=== PATIENT | male | born 1965 ===

== ENCOUNTER → 2016-11-11 | Outpatient (CLI) | payer BC ==
[~2016-11-11] MED LIST: CYCL10TA6 PO; HYDR-5688 PO; OXYC-57 PO
== END | disposition home or self-care (01) ==
LOC: C.RDSM 11:00
PROVIDERS: ATTEND Physical Medicine & Rehabilitation Sports Medicine
DX: M25.512 Pain in left shoulder (principal)

== ENCOUNTER → 2017-02-18 | Day surgery (SDC) | payer BC ==
[2017-02-04 09:36] VITALS: Ht 180.3 cm; Wt 88.6 kg
[~2017-02-18] VITALS: Ht 180.3 cm; Wt 88.6 kg
[~2017-02-18] MED LIST changes: +ATROPINE SULFATE 0.1 MG/ML 5ML SYR IV PRN; +BUPIVACAINE/EPINEPHRINE 0.5% MPF 1:200,000 30 ML VIAL ONE; +CEFAZOLIN 2000 MG/60 ML D5W IV SCH; +DEXAMETHASONE SOD INJ 4 MG/ML VIAL ONE; +EpHEDrine SULFATE INJ 50 MG/ML AMP IV PRN; +EpINEphrine INJ 1MG/ML AMP 1 MG/ML AMP ONE; +FENTANYL CITRATE INJ 50 MCG/1 ML 2 ML VIAL IV PRN; +FENTANYL CITRATE INJ 50 MCG/1 ML 2 ML VIAL ONE; +HYDROmorphone INJ 1 MG/ML SYR IV PRN; +LACTATED RINGER'S 1000ML 1,000 ML IV SCH; +LEVOFLOXACIN 500 MG TAB PO SCH; +LIDOCAINE HCL 2% 2 ML VIAL (20MG/ML) ONE; +MIDAZOLAM HCL 1 MG/ML 2ML VIAL ONE; +ONDANSETRON INJ 2 MG/ML 2 ML VIAL IV PRN; +ONDANSETRON INJ 2 MG/ML 2 ML VIAL ONE; +OXYCODONE/ACETAMINOPHEN 5-325 TAB PO PRN; +PROPOFOL IV EMULSION 10 MG/ML 20 ML VIAL IV ONE; +ROPIVACAINE 0.5% 5 MG/ML 30 ML VIAL ONE; +SODIUM CHLORIDE 0.9% 1000ML 1,000 ML IV SCH
--- NOTE | 2017-02-18 06:36 | History & Physical Bridge Note ---
H&P Re-Evaluation Bridge Note: I have examined the patient, reviewed the History & Physical and in the interval since the performance of the History & Physical I have noted the following changes of clinical significance: No changes noted
--- NOTE | 2017-02-18 06:39 | Discharge Instructions ---
Discharge Instructions Date of Service February 18, 2017. Visit Reason for Visit: Left Shoulder Rotator Cuff Tear With Impingement Discharge Discharge Diagnosis / Problem: same Discharge Goals Goal(s): Decrease discomfort, Improve function Medications Stopped Medications Name(s): na Restart Stopped Medication(s): use scripts as directed Activity Recommendations Activity Limitations: as noted below Lifting Limitations: until after follow-up appointment Exercise/Sports Limitations: until after follow-up appointment May Resume Sexual Activity: when tolerated Shower/Bathe: keep incision dry Driving or Machine Use: Anesthesia . Post Anesthesia Instructions: If you have had General Anesthesia or IV Sedation: * Do not drive today. * Resume driving when surgeon permits. * Do not make important decisions or sign legal documents today. * Call surgeon for: 1. Temperature elevations greater than 101 degrees F. 2. Uncontrollable pain. 3. Excessive bleeding. 4. Persistent nausea and vomiting. 5. Medication intolerance (nausea, vomiting or rash). * For nausea and vomiting use only clear liquids such as: tea, soda, bouillon until nausea subsides, then gradually increase diet as tolerated. * If you have any concerns or questions, call your surgeon's office. If physician is unavailable and it is an emergency, call 911 or go to the nearest emergency room. . Instructions / Follow-Up Instructions / Follow-Up The following are instructions to follow after "Shoulder Surgery" including, Acromioplasty, Rotator Cuff Repair and Instability Surgery ACTIVITY RECOMMENDATIONS: * Minimize activity after surgery. * No excessive walking, jogging, sports or laboring. * Return to activity is individualized depending on the patient and type of surgery. * Driving is not permitted until at least your first post operative visit. Please ask your doctor when it is safe to resume driving. * Expect increased discomfort with increased activity. Continue to ice the shoulder as needed. SCHOOL/WORK RECOMMENDATIONS: * You may return to sedentary work or school when you are feeling more comfortable. This is usually 3-7 days after surgery. MEDICATIONS: * You will have a prescription for pain medication and an anti-inflammatory medication after surgery. * Use the pain medication for severe pain and the anti-inflammatory for less severe pain. Once the pain medication has run out, try to use the anti-inflammatory medication. If this is not effective, contact the office for assistance. * The pain medication may cause nausea, constipation and drowsiness. You should see how they affect you before driving or similar activity. * The anti-inflammatory medication may cause stomach upset and bleeding. If this occurs let your doctor know immediately . * Take a stool softener like Colace or a laxative like Senokot to prevent constipation. DIET: * Resume previous diet. SPECIAL CARE: ICE: You have the option of an ice cooler, gel packs or ice bags. * If you have an ice cooler, refer to the instructions for that device. The ice cooler may be used continuously. * If you do not have an ice cooler, you will need to use ice bags or gel packs. Do not apply ice directly to the skin. Use a thin dressing or eneida shirt between the skin and ice bag. Apply ice for 20-30 minutes and repeat every 2-4 hours. This is especially important for the first 7-10 days after surgery. Once the pain improves, use ice as needed. ELEVATION: * You may be more comfortable sleeping in an upright position. Use the sling to elevate your arm. DRESSING: * Your dressing will be changed at your first therapy appointment approximately 4-5 days after surgery. Band-aids, tape strips or gauze may be applied. You may then change your dressing daily. * Reapply dressing followed by the EBIce cooling pad (if chosen) and then the sling. * Always wash your hands prior to touching the incision area. * Once the stitches are removed, you may leave the wound open to air or cover with gauze. * Expect some bloody drainage for the first few days after surgery. * Leave the tape strips, if present, in place for 5-7 days. * Band-aids and gauze may be changed daily. * There may be a gauze pad in your armpit area. This can be changed daily or replaced by a dry washcloth. SLING/BRACE: * You will need to use a sling or brace after surgery. The length of time the sling is used is dependent upon the type of surgery performed. * Arthroscopic Acromioplasty requires use of the sling for 2-4 weeks for comfort. * Labral procedures and Rotator Cuff Repairs require use of the sling for a longer period of time. Please check with your doctor prior to discontinuing the sling. BATHING: * You may shower or sponge-bathe immediately after surgery. The post operative shoulder dressing is mostly water-tight. You may shower right over this dressing, but be reasonably careful not to get the gauze or incision wet. * Once the dressing has been changed on the fourth or fifth day after surgery, you may shower and get the incision wet. * Wash with regular soap and water. * Do not bathe (submerge the incision), soak, swim or use a hot tub until the incision is completely healed over with normal skin and the doctor has given the OK to proceed. * There is no need to apply any ointments, powders or salves to your incision. * Do not apply alcohol or hydrogen peroxide directly to the incision. * Diluted peroxide (50:50 mixture with sterile saline) may be used to clean dried blood from around the incision area. THERAPY: * You will begin therapy four or five days after surgery. * Organized therapy with the therapist is important for the first 2-4 months after surgery depending on the type of procedure. During that time you will attend therapy 1-3 times per week. * You will also need to do daily exercises for range of motion and strength as instructed. * Patients who have a Capsular Shift Procedure will need to abide by temporary range of motion limitations. * Patients having Rotator Cuff Surgery are not allowed to actively lift their arms until 4-6 weeks after surgery. * Please check with your doctor regarding appropriate motion restrictions. FOLLOW UP VISIT: * If not already scheduled, please call the office at to schedule a follow-up appointment for 10 days after surgery and monthly thereafter. Diet Recommendations Recommended Home Diet: resume previous diet Procedures Procedures Performed: see op note Pending Studies Studies pending at discharge: no Medical Emergencies . Who to Call and When: Medical Emergencies: If at any time you feel your situation is an emergency, please call 911 immediately. . Non-Emergent Contact Non-Emergency issues call your: Specialist Call Non-Emergent contact if: temperature is above 101.5 . . "Provider Documentation" section prepared by Jose Luis Fisher. .
--- NOTE | 2017-02-18 08:46 | [facility] Post Operative Brief Note ---
Immediate Operative Summary Operative Date February 18, 2017. Pre-Operative Diagnosis Left Shoulder Rotator Cuff Tear with Impingement Post-Operative Diagnosis Same Procedure(s) Performed Left Shoulder Arthroscopy, Subacromial Decompression, Distal Clavicle Excision, Bursectomy, Joint Debridement and cuff debridement Surgeon Dr. Fisher Gum Dipper Surgeon(s) Keith Giordano, Fellow; Jing Álvarez PA-C Estimated Blood Loss Trace Findings see op note Fluids (cc crystalloids) 1100cc Specimens None Drains none Anesthesia LMA/block Complication(s) None Disposition Recovery Room / PACU
--- NOTE | 2017-02-18 09:27 | OPERATIVE REPORT ---
DATE OF OPERATION: 02/18/2017 SURGEON: Jose Luis Fisher MD PODIATRIC TECHNICIAN: Gregory Rudd MD SECOND PODIATRIC TECHNICIAN: Rush Álvarez PA-C PREOPERATIVE DIAGNOSIS: Chronic impingement syndrome with rotator cuff tendinopathy, left shoulder. POSTOPERATIVE DIAGNOSIS: Same. OPERATIONS PERFORMED: 1. Exam under anesthesia. 2. Diagnostic arthroscopy. 3. Arthroscopic limited debridement of articular lesion and superior type 1 SLAP lesion. 4. Subacromial decompression. 5. Excision of distal clavicle. 6. Debridement of bursal sided partial thickness tear 1 cm lateral to the insertion. PERIOPERATIVE SITUATION: Medically cleared male with intractable shoulder pain with physical exam, x-ray and MRI scan consistent with the above diagnosis. At this point in time, he has failed conservative management and wants to proceed with surgical treatment. Options were discussed with him concerning potential repair. He has been cleared for surgery. Obviously, no guarantees given. DESCRIPTION OF PROCEDURE: The patient appropriately identified, site verified, consent verified, 2 grams of Ancef confirmed as being given. The shoulder was examined revealing no ligamentous instability. It was then sterilely prepped and draped in usual routine fashion with the patient in the beach chair position. The posterior portal was made 2 cm medial and inferior to posterolateral tip of the acromion. The joint was entered without difficulty. An anterior portal made off the edge of the AC joint. Inspection of the joint at that point in time revealed superior labral delamination and flapping of the type 1 lesion of the superior labrum and this was debrided. The biceps anchor itself was relatively stable. He had some articular lesions at the inferior glenoid which were debrided, but the labrum itself was intact. This was consistent with his EUA which did not reveal any instability. The articular surface of the rotator cuff appeared intact. Once this was all debrided, the subacromial space was entered. There was significant hypertrophy of the bursa. This was debrided. There was marked fraying of the coracoclavicular ligament. This was then skeletonized off of the undersurface of the acromion, which had a type 3 hook. This was then all flattened with a bur. The AC joint was then inspected. There was a small spur of the inferior surface of the clavicle. This was skeletonized and then minimal resection performed off the distal clavicle. When viewed from laterally to medial and putting the trocar and cannulas posteriorly, there was good decompression. The rotator cuff area was then reinspected from this perspective and did not reveal any additional findings. The procedure was then terminated. All instruments and fluid removed. The portals closed with 4-0 nylon, dressed with Xeroform, 4 x 4 gauze, ABD pads and Ioban dressing. ESTIMATED BLOOD LOSS: Trace blood loss. INTRAVENOUS FLUIDS: Crystalloid 1100 mL. No DVT prophylaxis required. I attest to the content of the Intraoperative Record and any orders documented therein. Any exceptio ns are noted below.
[2017-02-18 09:56] VITALS: TEMP 36
--- NOTE | 2017-02-18 09:59 | Anesthesia Progress Nt - [facility] ---
Anesthesia Post Op Note Date & Time February 18, 2017 at 09:59 Vital Signs Pain Intensity: 0 Vital Signs Past 12 Hours Date Time Temp Pulse Resp B/P Pulse Ox O2 Delivery O2 Flow Rate FiO2 02/18/17 09:56 36.0 68 16 117/82 97 Room Air 02/18/17 09:38 65 11 02/18/17 09:38 66 11 96 02/18/17 09:36 119/85 02/18/17 09:33 75 13 97 02/18/17 09:33 76 13 02/18/17 09:32 36.4 73 12 119/85 98 Room Air 02/18/17 09:31 119/87 02/18/17 09:28 71 16 02/18/17 09:28 72 16 97 02/18/17 09:26 137/105 02/18/17 09:23 74 18 97 02/18/17 09:23 75 18 02/18/17 09:21 133/108 02/18/17 09:18 72 15 02/18/17 09:18 71 15 136/96 98 02/18/17 09:16 135/100 02/18/17 09:13 70 15 100 02/18/17 09:13 72 15 02/18/17 09:11 141/103 02/18/17 09:08 68 12 02/18/17 09:08 68 12 100 02/18/17 09:06 127/97 02/18/17 09:03 63 15 02/18/17 09:03 64 15 100 02/18/17 09:01 126/96 02/18/17 08:58 68 15 02/18/17 08:58 66 15 100 02/18/17 08:55 143/91 02/18/17 08:55 36.7 68 16 143/91 98 Diffusion Mask 6 02/18/17 07:53 0 02/18/17 07:52 85 18 100 02/18/17 07:52 85 02/18/17 07:51 105/74 02/18/17 07:47 72 18 98 02/18/17 07:47 71 02/18/17 07:46 109/78 02/18/17 07:43 67 02/18/17 07:43 70 19 99 02/18/17 07:42 67 11 99 02/18/17 07:42 64 02/18/17 07:41 105/74 02/18/17 07:37 65 02/18/17 07:37 66 16 99 02/18/17 07:37 66 16 99 02/18/17 07:37 65 02/18/17 07:36 112/72 02/18/17 07:33 72 19 98 02/18/17 07:33 70 02/18/17 07:32 67 19 99 02/18/17 07:32 66 02/18/17 07:31 106/78 02/18/17 07:27 67 34 99 02/18/17 07:27 67 02/18/17 07:26 66 02/18/17 07:26 65 14 108/78 98 02/18/17 07:21 64 32 106/78 100 02/18/17 07:21 64 02/18/17 07:17 111/74 02/18/17 07:16 67 0 96 02/18/17 07:16 69 02/18/17 07:11 73 02/18/17 07:11 73 0 97 02/18/17 07:06 72 0 97 02/18/17 07:06 74 02/18/17 07:01 64 0 02/18/17 06:29 36.9 63 16 113/70 96 Room Air Notes Mental Status: alert / awake / arousable, participated in evaluation Pt Amnestic to Procedure: Yes Nausea / Vomiting: adequately controlled Pain: adequately controlled Airway Patency, RR, SpO2: stable & adequate BP & HR: stable & adequate Hydration State: stable & adequate Anesthetic Complications: no major complications apparent
[2017-02-18 10:20] VITALS: BP 120/83; PULSE 67; O2SAT 98
--- NOTE | 2017-02-18 20:06 | OPERATIVE REPORT ---
DATE OF OPERATION: 02/18/2017 PREOPERATIVE DIAGNOSIS: Left shoulder chronic impingement syndrome with rotator cuff tendinopathy. POSTOPERATIVE DIAGNOSIS: Left shoulder same. PROCEDURE: Left shoulder evaluation under anesthesia, arthroscopy, debridement of SLAP lesion, subacromial decompression, excision of distal clavicle, and debridement of partial thickness rotator cuff tear. SURGEON: Dr. Fisher. GLUED WOOD TESTER: Dr. Parada. SECOND GLUED WOOD TESTER: Rush Álvarez PA-C. HISTORY OF PRESENT ILLNESS: This 51-year-old white male presented to the office with complaints of left shoulder pain that was not responsive to conservative care measures. X-ray and MRI were obtained. He elected to proceed with surgical intervention after being educated about potential risks and outcomes. OPERATION: The patient was administered regional block and then taken to the operating room where he was given general anesthesia. He was prepped and draped in the usual sterile fashion. Please see Dr. Fisher's operative report for specifics of the procedure. I was present for the entire case from initial patient positioning through final wound closure. Assistance was provided in patient positioning, arthroscopy, and final wound closure. The patient was taken to the recovery room in satisfactory condition. I attest to the content of the Intraoperative Record and any orders documented therein. Any exceptio ns are noted below.
== END | disposition home or self-care (01) ==
LOC: X.SURG 06:08
PROVIDERS: ATTEND Physical Medicine & Rehabilitation Sports Medicine
DX: M75.42 Impingement syndrome of left shoulder (principal); M75.92 Shoulder lesion, unspecified, left shoulder; G89.21 Chronic pain due to trauma; K21.9 Gastro-esophageal reflux disease without esophagitis; G62.9 Polyneuropathy, unspecified; M54.5 Low back pain

== ENCOUNTER → 2017-03-31 | Outpatient (CLI) | payer BC ==
[~2017-03-31] MED LIST changes: -ATROPINE SULFATE 0.1 MG/ML 5ML SYR IV PRN; -BUPIVACAINE/EPINEPHRINE 0.5% MPF 1:200,000 30 ML VIAL ONE; -CEFAZOLIN 2000 MG/60 ML D5W IV SCH; -DEXAMETHASONE SOD INJ 4 MG/ML VIAL ONE; -EpHEDrine SULFATE INJ 50 MG/ML AMP IV PRN; -EpINEphrine INJ 1MG/ML AMP 1 MG/ML AMP ONE; -FENTANYL CITRATE INJ 50 MCG/1 ML 2 ML VIAL IV PRN; -FENTANYL CITRATE INJ 50 MCG/1 ML 2 ML VIAL ONE; -HYDROmorphone INJ 1 MG/ML SYR IV PRN; -LACTATED RINGER'S 1000ML 1,000 ML IV SCH; -LEVOFLOXACIN 500 MG TAB PO SCH; -LIDOCAINE HCL 2% 2 ML VIAL (20MG/ML) ONE; -MIDAZOLAM HCL 1 MG/ML 2ML VIAL ONE; -ONDANSETRON INJ 2 MG/ML 2 ML VIAL IV PRN; -ONDANSETRON INJ 2 MG/ML 2 ML VIAL ONE; -OXYCODONE/ACETAMINOPHEN 5-325 TAB PO PRN; -PROPOFOL IV EMULSION 10 MG/ML 20 ML VIAL IV ONE; -ROPIVACAINE 0.5% 5 MG/ML 30 ML VIAL ONE; -SODIUM CHLORIDE 0.9% 1000ML 1,000 ML IV SCH
== END | disposition home or self-care (01) ==
LOC: C.RDSM 13:40
PROVIDERS: ATTEND Physical Medicine & Rehabilitation Sports Medicine
DX: M75.122 Complete rotator cuff tear or rupture of left shoulder, not specified as traumatic (principal); M75.42 Impingement syndrome of left shoulder